=== PATIENT | female | born 1985 | race Asian ===

== ENCOUNTER 2016-11-22 07:57 | Inpatient (IN) | payer BC ==
[2016-11-22] MEDS ORDERED: Dinoprostone* 10 MG VAG.SUPP VAGINAL ONE (09:46)
[2016-11-22 10:16] LABS: Hematocrit 35 % (35-47); Mean Corpuscular HGB Conc 34 g/dl (31-36); Mean Corpuscular Hemoglobin 32 pg (27-31); Mean Corpuscular Volume 93 fL (80-97); Mean Platelet Volume 8 um3 (7.4-10.4); Red Blood Count 3.78 10^6/ul (4.0-5.4); Red Cell Distribution Width 14 % (10.5-15); White Blood Count 8.1 10^3/ul (3.5-10.8)
[2016-11-22 10:17] LABS: Add Diff/Slide Review? Slide Review Added; Comments Flag Yes
[2016-11-22 18:20] LABS: Hematocrit 38 % (35-47); Hemoglobin 12.6 g/dl (12.0-16.0); Mean Corpuscular HGB Conc 33 g/dl (31-36); Mean Corpuscular Hemoglobin 31 pg (27-31); Mean Corpuscular Volume 93 fL (80-97); Mean Platelet Volume 8 um3 (7.4-10.4); Red Blood Count 4.09 10^6/ul (4.0-5.4); Red Cell Distribution Width 14 % (10.5-15); White Blood Count 11.4 10^3/ul (3.5-10.8)
[2016-11-22 18:22] LABS: Comments Flag Yes
[2016-11-22] MEDS ORDERED: OBEPIDURAL* 250 ML ONE (19:10)
[2016-11-22] MEDS ORDERED: Sodium Citrate/Citric Acid* 15 ML UDC PO PRN (20:23)
[2016-11-22] MEDS ORDERED: Famotidine TAB* 20 MG PO PRN (20:23)
[2016-11-22] MEDS ORDERED: Phenylephrine IV* 40 MCG/ML 10 ML SYRINGE IV PUSH PRN (20:23)
[2016-11-22] MEDS ORDERED: OBEPIDURAL* 250 ML EPIDURAL SCH (21:00)
[2016-11-23] MEDS ORDERED: Oxytocin in LR* 20 UNITS/1,000 ML BAG IVPB ONE (05:41)
[2016-11-23] MEDS ORDERED: Oxytocin in LR* 20 UNITS/1,000 ML BAG IVPB SCH (07:00)
[2016-11-23 08:47] LABS: Mean Platelet Volume 9 um3 (7.4-10.4)
[2016-11-23 08:48] LABS: Comments Flag Yes
[2016-11-23] MEDS ORDERED: ceFOXitin 2 GM IVPREMIX* 2 GM/50 ML BAG IVPB ONE (08:48)
[2016-11-23] MEDS ORDERED: Lidocaine 2% EPI 1:200000 MPF* 20 ML VIAL ONE (09:15)
[2016-11-23] MEDS ORDERED: Sodium Bicarbonate 8.4% SYR* 10 ML SYRINGE ONE (09:15)
[2016-11-23] MEDS ORDERED: Morphine PF AMP (0.5MG/ML)* 5 MG/10 ML AMP ONE (09:21)
[2016-11-23] MEDS ORDERED: fentaNYL* 50 MCG/ML 2 ML VIAL (100 MCG VIAL) ONE ×2 (09:59→10:17)
[2016-11-23] MEDS ORDERED: oxyCODONE/Acetamin 5/325 MG* TAB PO PRN ×4 (10:06→10:53)
[2016-11-23] MEDS ORDERED: Nalbuphine* 20 MG/ML 1 ML VIAL IV PRN ×2 (10:06)
[2016-11-23] MEDS ORDERED: fentaNYL* 50 MCG/ML 2 ML VIAL (100 MCG VIAL) IV PRN (10:06)
[2016-11-23] MEDS ORDERED: HYDROmorphone INJ* 1 MG/ML CARPUJECT SYRINGE IV PRN (10:06)
[2016-11-23] MEDS ORDERED: Naloxone* 0.4 MG/ML 1 ML VIAL IV PRN (10:06)
[2016-11-23] MEDS ORDERED: Ondansetron INJ* 2 MG/ML VIAL IV PRN (10:06)
[2016-11-23] MEDS ORDERED: Dexamethasone IV* 4 MG/ML 1 ML (4 MG) ONE (10:37)
[2016-11-23] MEDS ORDERED: Ondansetron INJ* 2 MG/ML VIAL ONE (10:37)
[2016-11-23] MEDS ORDERED: OXYTOCIN* 10 UNITS/ML 1 ML VIAL ONE (10:37)
[2016-11-23] MEDS ORDERED: Witch Hazel PAD* JAR TOPICAL PRN (10:53)
--- NOTE | 2016-11-23 12:06 | PTEDU ---
Patient Name: JAKE SANCHEZ JAKE SANCHEZ selected video: BBOB: Nurturing Your Gorgeous \T\Growing Baby by to view on 0 11/23/2016 at 12:05:14 PM from [id number]
[2016-11-23] MEDS ORDERED: Acetaminophen TAB* 325 MG ONE (13:14)
[2016-11-23 13:22] LABS: Hematocrit 39 % (35-47); Hemoglobin 12.8 g/dl (12.0-16.0); Mean Corpuscular HGB Conc 33 g/dl (31-36); Mean Corpuscular Hemoglobin 31 pg (27-31); Red Blood Count 4.12 10^6/ul (4.0-5.4); Red Cell Distribution Width 14 % (10.5-15); White Blood Count 16.3 10^3/ul (3.5-10.8)
[2016-11-23 13:25] LABS: Mean Corpuscular Volume 91 fL (80-97)
[2016-11-23] MEDS: PRENATAL DHA PO SCH (15:46)
[2016-11-23] MEDS: Docusate CAP* 100 MG PO SCH ×2 (17:01→20:34)
[2016-11-23] MEDS: Simethicone TAB* 80 MG TAB.CHEW PO SCH ×3 (17:01→20:34)
--- NOTE | 2016-11-24 04:06 | OP ---
DATE OF OPERATION: 11/23/16 - ROOM #[facility]-102 DATE OF : 83 SURGEON: Tran Rosenbaum MD DAYCARE ASSISTANT: Dr. Gandara. ANESTHESIOLOGIST: Dr. Palmer. ANESTHESIA: Epidural. PRE-OP DIAGNOSIS: 41 plus 0 weeks gestation with arrest of descent. POST-OP DIAGNOSIS: 41 plus 0 weeks gestation with arrest of descent. OPERATIVE PROCEDURE: Primary low transverse section with vacuum assist. INDICATIONS: This patient was a 31-year-old 3, para 0, who presented yesterday at 40 plus 6 weeks gestation for induction of labor. Cervix was long and closed. Of note, the patient had thrombocytopenia so platelets were checked a few times during labor. She received Cervidil initially followed by Pitocin, and had good cervical change. This morning, the patient reached complete-complete and about 0 station. Over approximately two and a half hours , the patient did not have any significant descent past +1 station despite very adequate pushing. Considering the persistent fairly high station without continued descent, I recommended proceeding to a primary section and the patient agreed. She was extensively counseled and consent was signed. ESTIMATED BLOOD LOSS: 800 cc. URINE OUTPUT: 300 cc. IV FLUIDS: 1500 cc lactated Ringer's. MATERIALS TO LAB: Cord blood. FINDINGS: Normal-appearing uterus, fallopian tubes, and ovaries. Delivery was productive of a male weighing 6 pounds 9 ounces with Apgars of 9 and 9. COMPLICATIONS: Uterine incision extension due to the low station, which was on the right lower aspect. The uterus had to be kept in situ for closure due to the limited pain control. DESCRIPTION OF PROCEDURE: The risks, benefits, and alternatives were described to the patient and informed consent was obtained. The patient was taken to the operating room with IV running where epidural anesthesia was induced and found to be adequate. The patient was prepped and draped in the normal sterile fashion in the dorsal supine position with leftward tilt. A Pfannenstiel skin incision was made with a scalpel and this was carried down to the underlying fascia sharply. The fascia was then scored in the midline with the scalpel. The incision was extended using العلي scissors. The rectus muscles were dissected off the rectus fascia using blunt and sharp dissection. The rectus muscles were in the midline bluntly. The peritoneum was also entered bluntly. A bladder blade was placed. A bladder flap was created sharply using Metzenbaum scissors. A low transverse uterine incision was made with the scalpel. This was carried down to the amniotic cavity which was productive of clear fluid. The incision was extended with blunt traction. The head was elevated to the level of the incision with significant difficulty due to the firmly engaged head. Once it was elevated to the incision, difficulty was encountered delivering the head through the incision due to its position. A Kiwi vacuum cup was placed on the scalp and with very brief additional traction added to the fundal pressure, the head delivered. The Kiwi was immediately removed. With fundal pressure, the shoulders and body then delivered without difficulty. The had a good tone and cried immediately on delivery. The cord was doubly clamped and cut. The was then handed to the awaiting pressroom supervisor. Cord blood was collected. The placenta then delivered with manual extraction. The patient was having significant discomfort at that time, so the uterus was left in situ. A laparotomy sponge was used to clear the uterus of all clots and debris. The uterine incision was reapproximated using 0 Polysorb in a running-locked fashion. An extention was noted on the right lower uterus, and this was carefully identified and closed with 0 Polysorb. A second layer of imbricating sutures of 0 Polysorb was also placed with good hemostasis. The paracolic gutters were irrigated with saline. The peritoneum was closed with 3- 0 Polysorb in a running fashion. The fascia was closed with 0 Polysorb in a running fashion. Subcutaneous tissues were irrigated and made hemostatic with the bovie. This layer was reapproximated using 3-0 Polysorb in interrupted stitches. The skin was then closed with 4-0 Monocryl in a subcuticular stitch. Mastisol and Steri-Strips were placed over the incision which was then covered with a sterile bandage. The patient tolerated the procedure well. Sponge, lap, and needle counts were correct x2. [id number]/[facility] #: [id number] [facility]
[2016-11-24 07:23] LABS: Hematocrit 33 % (35-47); Hemoglobin 11.1 g/dl (12.0-16.0); Mean Corpuscular HGB Conc 34 g/dl (31-36); Mean Corpuscular Hemoglobin 31 pg (27-31); Mean Corpuscular Volume 93 fL (80-97); Mean Platelet Volume 8 um3 (7.4-10.4); Red Blood Count 3.56 10^6/ul (4.0-5.4); Red Cell Distribution Width 14 % (10.5-15)
[2016-11-24] MEDS: Acetaminophen TAB* 325 MG PO PRN ×2 (07:43→19:34)
[2016-11-24] MEDS: Simethicone TAB* 80 MG TAB.CHEW PO SCH ×4 (07:44→20:27)
[2016-11-24] MEDS: Docusate CAP* 100 MG PO SCH ×2 (13:46→14:18)
[2016-11-24] MEDS: PRENATAL DHA PO SCH (13:46)
[2016-11-25] MEDS: Simethicone TAB* 80 MG TAB.CHEW PO SCH ×4 (08:59→19:58)
[2016-11-25] MEDS ORDERED: OXYTOCIN* 10 UNITS/ML 1 ML VIAL ONE (11:50)
[2016-11-25] MEDS: PRENATAL DHA PO SCH (18:23)
[2016-11-25] MEDS: Acetaminophen TAB* 325 MG PO PRN (19:58)
[2016-11-26] MEDS: Acetaminophen TAB* 325 MG PO PRN (03:37)
[2016-11-26 08:42] LABS: Hematocrit 32 % (35-47); Hemoglobin 10.7 g/dl (12.0-16.0); Mean Corpuscular HGB Conc 33 g/dl (31-36); Mean Corpuscular Hemoglobin 31 pg (27-31); Mean Corpuscular Volume 94 fL (80-97); Mean Platelet Volume 7 um3 (7.4-10.4); Red Blood Count 3.42 10^6/ul (4.0-5.4); Red Cell Distribution Width 14 % (10.5-15); White Blood Count 10.3 10^3/ul (3.5-10.8)
[2016-11-26] MEDS: PRENATAL DHA PO SCH (09:37)
[2016-11-26] MEDS: Simethicone TAB* 80 MG TAB.CHEW PO SCH (09:37)
--- NOTE | 2016-11-26 18:04 | PTEDU ---
Patient Name: JAKE SANCHEZ JAKE SANCHEZ selected video: Never Ever Shake a Baby to view on 11/26/2016 at 6:04:36 PM from [id number]
[2016-11-26 19:47] VITALS: BP 126/74
== END 2016-11-26 21:30 | disposition home or self-care (01) | DRG 540 ==
LOC: MCHOBOUT 07:57 → MCHOB 17:32
PROVIDERS: ADMIT Obstetrics & Gynecology; ATTEND Obstetrics & Gynecology
PROC: 3E033VJ Introduction of Other Hormone into Peripheral Vein, Percutaneous Approach (ICD-10-PCS; 2016-11-23)
PROC: 10D00Z1 Extraction of Products of Conception, Low, Open Approach (ICD-10-PCS; principal; 2016-11-23 09:28)
DX: O32.4XX0 Maternal care for high head at term, not applicable or unspecified (principal); D69.6 Thrombocytopenia, unspecified; O48.0 Post-term pregnancy; Z3A.41 41 weeks gestation of pregnancy; Z37.0 Single live birth
CPT/HCPCS: 36415; 85025; 85027; 86850; 86900; 86901; 86922; A9270-GY; J0694; J1100; J2405; J2590; J3010